=== PATIENT | female | born 1975 | race African-American/Black ===

== ENCOUNTER 2017-02-17 02:00 | Inpatient (IN) | payer MEDICAID ==
[~2017-02-17] VITALS: Ht 160 cm; Wt 104.3 kg
--- NOTE | ~2017-02-17 | PN ---
Unit #: [id number] #: [id number] Patient: ELVIRA QUINONES [id number] [facility] [address] [place] [address] [id number] I MR#: [id number] NAME: ELVIRA QUINONES ROOM: P130 Age: 41 Sex: F Admission Date: 02/17/2017 : 1975 Attending Physician: Anahy Foley M.D. Admitting Physician: Anahy Foley M.D. Primary Care Physician: Primary Care Physician Rosi PEARL NOTES DATE February 19, 2017 DISCUSSION Ms. Quinones is a 41-year-old female, who was seen today and chart was reviewed and the case was discussed with the staff. She has been anxious, withdrawn, and rather seclusive to herself. Meanwhile, she has been exhibiting some persistent psychosis, paranoid, and delusional behavior, and has been taking the medications and tolerating them fairly well with no reported side effects. MENTAL STATUS EXAMINATION Young white female, who was casually dressed with fair personal hygiene and appears to be in no acute distress or discomfort. She was awake and alert on interaction with intact orientation. Her mood was anxious and depressed with a congruent affect. She denies any suicidal or homicidal ideations. Her insight and judgment remain slightly impaired. TREATMENT PLAN 1. We will continue her on her current medications and treatment protocol, and will monitor her response to the medications, and make further adjustments as needed. 2. We will continue to followup. Dictated by... Dawson Robb/sierra TD: 02/19/2017 13:15 JOB #: [id number] Unit #: [id number] #: [id number] Patient: ELVIRA QUINONES NADEGE PROGRESS NOTES Page 1 of 1 X Anahy Foley MD PROGRESS NOTE
--- NOTE | ~2017-02-17 | PN ---
Unit #: [id number] #: [id number] Patient: ELVIRA STEELE [id number] [facility] [address] [place] [address] [id number] I MR#: [id number] NAME: ELVIRA STEELE ROOM: P130 Age: 41 Sex: F Admission Date: 02/17/2017 : 1975 Attending Physician: Anahy Foley M.D. Admitting Physician: Anahy Foley M.D. Primary Care Physician: [facility] Care [facility] NOT[facility] DATE OF SERVICE: 02/18/2017 SUBJECTIVE Ms. Steele is a 41-year-old female, who was seen today and chart was reviewed, and case was discussed with the staff. She has been anxious, withdrawn, depressed, acutely psychotic, paranoid, delusional, and has been carrying on conversation without making any sense and has been talking about looking at people faces and realizing they are not real and that she went [facility] and she was talking different tones and that she realized that she different languages and things are getting bizarre. She felt the devil is communicating with her and was not making much sense and was seen to be acutely psychotic, though she has been taking medications and tolerating them fairly well, but does not appear to be showing therapeutic response to medications. MENTAL STATUS EXAMINATION Middle-aged female, who was casually dressed with fair personal hygiene, appears to be in no acute distress or discomfort. She was awake and alert with impaired attention and concentration. Her mood was anxious with a congruent affect. Her speech was slow and tangential. Her thought processes were disorganized with some looseness of associations and flight of ideas. Her insight and judgment remain significantly impaired. TREATMENT PLAN 1. We will continue her current medications, but we will increase Abilify to 10 mg b.i.d. We will also consider long-acting injectable due to history of poor compliance with medication leading to rapid decompensation. 2. We will continue to follow up. Dictated by... Dawson Robb/maryse TD: 02/18/2017 09:27 JOB #: [id number] Unit #: [id number] #: [id number] Patient: ELVIRA STEELE PROGRESS NOTES Page 1 of 1 X Anahy Foley MD PROGRESS NOTE
--- NOTE | ~2017-02-17 | PN ---
Unit #: [id number] #: [id number] Patient: ELVIRA QUINONES [id number] [facility] [address] [place] [address] [id number] MR#: [id number] NAME: ELVIRA QUINONES ROOM: P130 Age: 41 Sex: F Admission Date: 02/17/2017 : 1975 Attending Physician: Anahy Foley M.D. Admitting Physician: Anahy Foley M.D. Primary Care Physician: Primary Care Physician Rosi PEARL NOTES DATE OF SERVICE 02/20/2017 DISCUSSION Ms. Quinones is a 41-year-old female who was seen today and chart was reviewed and case was discussed with the staff. She has been anxious, withdrawn and seclusive to herself. Meanwhile, she has been cooperative with treatment recommendations as she has been taking the medications and tolerating them fairly well with no reported side effects. MENTAL STATUS EXAMINATION Young female who was casually dressed with fair personal hygiene, appears to be in no acute distress or discomfort. She was awake and alert with impaired attention and concentration. Her mood was anxious with congruent affect. Her speech was slow and tangential. Her thought processes were disorganized with some looseness of associations and paranoid ideations and delusional behavior. Her insight and judgement remains . TREATMENT PLAN 1. We will continue her on her current medications and treatment protocol. We will monitor her response . Dictated by... Dawson Robb/matthew TD: 02/23/2017 03:34 JOB #: [id number] [facility] PROGRESS NOTES Page 1 of 1 X Anahy Foley MD PROGRESS NOTE
--- NOTE | ~2017-02-17 | PN ---
Unit #: [id number] #: [id number] Patient: ELVIRA QUINONES [id number] [facility] [address] [place] [address] [id number] I MR#: [id number] NAME: ELVIRA QUINONES ROOM: P130 Age: 41 Sex: F Admission Date: 02/17/2017 : 1975 Attending Physician: Anahy Foley M.D. Admitting Physician: Anahy Foley M.D. Primary Care Physician: Primary Care Physician Rosi PEARL NOTES DATE OF SERVICE: 02/22/2017 SUBJECTIVE Ms. Quinones is a 41-year-old female with mood disorder and psychosis, who was seen today and chart was reviewed and case was discussed with the staff. She has been anxious, withdrawn, unkempt, disheveled, disorganized, and rather seclusive to herself and has not been able to carry on any meaningful conversation. Meanwhile, she has been taking medications and tolerating them fairly well with no reported side effects. MENTAL STATUS EXAMINATION Young female who was casually dressed with fair personal hygiene, appears to be in no acute distress or discomfort. She was awake and alert with impaired attention and concentration. Her mood was anxious with a congruent affect. Her speech was slow and restricted in content. She denies any suicidal or homicidal ideations. Her insight and judgment remain slightly impaired. TREATMENT PLAN 1. We will continue on her current medications and treatment protocol. We will monitor her response to medications and make further adjustments as needed. 2. We will continue to follow up. Dictated by... Dawson Robb/maryse TD: 02/24/2017 02:41 JOB #: [id number] Unit #: [id number] #: [id number] Patient: ELVIRA QUINONES NADEGE PROGRESS NOTES Page 1 of 1 X Anahy Foley MD PROGRESS NOTE
--- NOTE | ~2017-02-17 | HP ---
Unit #: [id number] #: [id number] Patient: PATTI QUINONES [id number] [place] [address] [id number] I MR#: [id number] NAME: PATTI QUINONES. ROOM: P130 Age: 41 Sex: F Admission Date: 02/17/2017 : 1975 Attending Physician: Anahy Foley M.D. Admitting Physician: Anahy Foley M.D. Primary Care Physician: Primary Care Physician No HISTORY AND PHYSICAL HISTORY OF PRESENT ILLNESS Patti is a 41 year old admitted to [address] [place] [address] with psychotic behavior. She is a poor historian so her history is taken from her chart. She has had numerous admissions to this facility for the same. PAST MEDICAL HISTORY 1. Seizure disorder. 2. High blood pressure. 3. Diabetes mellitus. 4. Morbid obesity. PAST SURGICAL HISTORY x 2. ALLERGIES Latex. SOCIAL HISTORY No history of cigarettes, alcohol or illicit drug use. FAMILY HISTORY Medically not known. REVIEW OF SYSTEMS She does not answer all questions appropriately. There are no reports of nausea, vomiting or diarrhea. She has had no cough or increased temperature. CURRENT MEDICATIONS 1. Zestril 40 mg q day 2. HCTZ 25 mg q day 3. Norvasc 5 mg q day 4. Abilify 15 mg q day 5. Januvia 50 mg b.i.d. 6. Glucophage 500 mg b.i.d. 7. Motrin p.r.n. 8. Milk of Magnesia p.r.n. 9. Maalox p.r.n. 10. Tylenol p.r.n. PHYSICAL EXAMINATION GENERAL: Alert, morbidly obese, in no apparent distress. Unit #: [id number] #: [id number] Patient: PATTI QUINONES VITAL SIGNS: Blood pressure 184/100, heart rate 88, respirations 16, temperature 98.6. WEIGHT: 230. HEIGHT: 5 foot 3 inches. SKIN: Warm and dry without rash or lesion. HEENT: Normocephalic. TMs not viewed. Oral and nasal passages clear. Conjunctivae clear. Pupils equal, round and reactive to light and accommodation. Extraocular movements intact. NECK: Supple without lymphadenopathy or thyromegaly. HEART: Regular rate and rhythm without murmur. LUNGS: Clear. ABDOMEN: Soft, nontender. : Not done. EXTREMITIES: No evidence of cyanosis, clubbing or edema. Moves all extremities without focal deficit. NEUROLOGICAL: Unable to complete extended exam. She does move all extremities without focal deficit. Hand field service consultant is equal and gait is normal. IMPRESSION Psychiatric admission. RECOMMENDATIONS PSYCHIATRIC: Per psychiatrist. MEDICAL: 1. I see no contraindications to participating in facility's activities. 2. Continue Zestril HCTZ, Norvasc, Januvia and Glucophage. MEDICAL PROGNOSIS Good. MEDICAL CONDITION Stable. Dictated by... Ban Moreno P.A.-C. for Dawson Razo/matthew TD: 02/17/2017 20:39 JOB #: [id number] HISTORY AND PHYSICAL Page 1 of 1 X Ban Moreno X HISTORY AND PHYSICAL
--- NOTE | ~2017-02-17 | DS ---
Unit #: [id number] #: [id number] Patient: ELVIRA STEELE [id number] [facility] [address] [place] [address] [id number] I MR#: [id number] NAME: ELVIRA STEELE ROOM: P130 Age: 41 Sex: F Admission Date: 02/17/2017 : 1975 Discharge Date: 02/23/2017 Attending Physician: Anahy Foley M.D. Primary Care Physician: Primary Care Physician No DISCHARGE SUMMARY IDENTIFYING DATA Ms. Steele is a 41-year-old single female, who is a resident of [place], [place], and was self-referred to the hospital on a voluntary basis and is known to us from previous encounter. DISCHARGE DIAGNOSES Psychiatric: Schizoaffective disorder, bipolar type, most recent episode depressed, recurrent, moderate, with psychosis. Medical: Hypertension and diabetes mellitus. Stressors: Moderate psychosocial stressors. HISTORY OF PRESENT ILLNESS Please see initial psychiatric evaluation for details. PAST PSYCHIATRIC HISTORY Please see initial psychiatric evaluation for details. PAST MEDICAL HISTORY Please see initial psychiatric evaluation for details. HOSPITAL COURSE The patient was [facility] and was oriented to the hospital environment. Routine p.r.n. medications were initiated, and she was started back on her home medications including her Abilify; however, given her history of poor compliance with medications leading to rapid decompensation and inpatient hospitalization, we decided that the patient will be a candidate for long-acting injectable antipsychotic and ruling out hypersensitivity to the molecule of aripiprazole. Abilify Maintena as a long-acting injectable was advised. Meanwhile, oral aripiprazole was maintained and the patient was closely monitored. She was taking the medications regularly and was tolerating them fairly well and was able to show a decent and therapeutic response with improvement in depression and psychosis, and as such, it was decided that she will be discharged home and will continue treatment on an outpatient basis. DISCHARGE MEDICATIONS Abilify Maintena 400 mg intramuscular every 30 days. DISCHARGE CONDITION Stable. PROGNOSIS Fair. Unit #: [id number] #: [id number] Patient: ELVIRA STEELE Dictated by... Anahy Foely M.D. IAA/modl TD: 02/23/2017 15:34 JOB #: [id number] DISCHARGE SUMMARY Page 1 of 1 X Anahy Foley MD DISCHARGE SUMMARY
--- NOTE | ~2017-02-17 | PN ---
Unit #: [id number] #: [id number] Patient: ELVIRA QUINONES [id number] [facility] [address] [place] [address] [id number] I MR#: [id number] NAME: ELVIRA QUINONES ROOM: P130 Age: 41 Sex: F Admission Date: 02/17/2017 : 1975 Attending Physician: Anahy Foley M.D. Admitting Physician: Anahy Foley M.D. Primary Care Physician: Primary Care Physician Rosi PEARL NOTES DATE OF SERVICE: 02/21/2017 SUBJECTIVE Ms. Quinones is a 41-year-old female, who was seen today, chart was reviewed, and case was discussed with the staff. She has been anxious, withdrawn, depressed, and rather seclusive to herself. Meanwhile, she has been cooperative with treatment recommendations and has been taking medications and tolerating them fairly well with no reported side effects. MENTAL STATUS EXAMINATION Young female, who was casually dressed with fair personal hygiene, appears to be in no acute distress or discomfort. She was awake and alert with impaired attention and concentration. Her mood was anxious and depressed with a congruent affect. She denies any suicidal or homicidal ideations. Her insight and judgment remain significantly impaired. TREATMENT PLAN 1. We will continue her on current medications and treatment protocol. We will monitor her response to medications and make further adjustments as needed. 2. We will continue to follow up. Dictated by... Dawson Robb/maryse TD: 02/24/2017 02:36 JOB #: [id number] Unit #: [id number] #: [id number] Patient: ELVIRA QUINONES NADEGE PROGRESS NOTES Page 1 of 1 X Anahy Foley MD PROGRESS NOTE
--- NOTE | ~2017-02-17 | PA ---
Unit #: [id number] #: [id number] Patient: EL[facility] STEELE [id number] [facility] [address] [place] [address] [id number] I MR#: [id number] NAME: ELVIRA STEELE ROOM: P130 Age: 41 Sex: F Admission Date: 02/17/2017 : 1975 Date of Assessment: 02/17/2017 Attending Physician: Anahy Foley M.D. Admitting Physician: Anahy Foley M.D. Primary Care Physician: Primary Care Physician No PSYCHIATRIC ASSESSMENT DATE OF SERVICE 02/17/2017. IDENTIFYING DATA Ms. Steele is a 41-year-old single female, who is a resident of [place], [place], and was self-referred to the hospital on a voluntary basis and is known to us from previous encounter with history of chronic mental illness. CHIEF COMPLAINT "I need my medications adjusted." HISTORY OF PRESENT ILLNESS Ms. Steele is a 41-year-old female, who came to the emergency room at [place], [place], and stated that she needs her medication adjusted and that she is hearing voices from a demon that the demon has attempted to wipe away her thoughts and scares her and reports that because of the demon's constant chastising and heckling, she is unable to get any sleep and does report increasing anger, agitation, irritability, impulsivity, and was seen to be acutely psychotic due to disorganized thought, speech, and behavior and was seen to be a danger to self and others and as such, recommendation for inpatient level of care for safety and stabilization was made. The patient was stepped up to the inpatient unit. SUBSTANCE ABUSE HISTORY The patient denies any alcohol or drug abuse. PAST PSYCHIATRIC HISTORY The patient has had history of multiple inpatient [facility] and has been diagnosed and treated for schizoaffective disorder and has been on Abilify, but does not appear to be showing a therapeutic response to medications. PAST MEDICAL HISTORY The patient's medical history is significant for hypertension and diabetes mellitus. ALLERGIES Latex. PERSONAL AND SOCIAL HISTORY A 41-year-old female, who reports that she is single, Unit #: [id number] #: [id number] Patient: ELVIRA STEELE unemployed, and lives alone and has poor social support system. MENTAL STATUS EXAMINATION Young female who was casually dressed with fair personal hygiene, appears to be in no acute distress or discomfort. She was awake and alert on interaction with intact orientation to time, place, and person. Her mood was anxious and depressed with a congruent affect. Her speech was slow and restricted in content. Her thought processes were disorganized with some looseness of associations and flight of ideas and paranoid ideations and auditory and visual hallucinations and delusional behavior. Her insight and judgment remain significantly impaired. DIAGNOSTIC IMPRESSION Psychiatric: Schizoaffective disorder, bipolar type, most recent episode depressed, recurrent, moderate, with psychosis. Medical: Hypertension and diabetes mellitus. Stressors: Moderate psychosocial stressors. TREATMENT PLAN 1. The patient has presented with history of mood disorder, and has been decompensating and will need inpatient hospitalization for safety and stabilization. We will start her back on her home medications. We will adjust the medications and monitor response. 2. Supportive therapy was provided to the patient. 3. Safe, structured, and nourishing environment will be provided. ESTIMATED LENGTH OF STAY 5 to 7 days. ABILITY TO HELP SELF Limited. WILLINGNESS TO HELP SELF The patient appears to be willing to help self. STRENGTHS 1. Communicative. 2. Cooperative. PROBLEMS 1. Chronic dysphoric symptoms. 2. Poor social support system. DISCHARGE CRITERIA This will be contingent upon the patient's ability to show resolution of her depression and psychosis as well as her ability to stay safe to herself, particularly after discharge from the hospital. Dictated by... Dawson Robb/maryse TD: 02/18/2017 07:11 JOB #: [id number] Unit #: [id number] #: [id number] Patient: ELVIRA STEELE PSYCHIATRIC ASSESSMENT Page 1 of 1 X Anahy Foley MD X PSYCHIATRIC ASSESSMENT
[~2017-02-17 02:00] MED LIST: ATENOLOL50 MG PO; BUSPAR15 M3 PO; EFFEXOR75 MG PO; LEVAQUIN750 MG PO; LEVEMIR SUBQ; MAALOX ADVANCE1 EACH PO; MILK OF MAGNESIA PO; NORVASC10 MG PO; RISPERDAL1 M1 PO; TYLENOL325 M1 PO; ZESTRIL40 MG PO
[2017-02-19 13:00] LABS: AMPHETAMINE NEG (NEG); BARBITURATES NEG (NEG); BENZODIAZEPINES NEG (NEG); COCAINE NEG (NEG); MARIJUANA NEG (NEG); OPIATES NEG (NEG); TRICYCLIC ANTIDEPRESSANTS NEG (NEG); U METHADONE NEG (NEG)
== END 2017-02-23 10:38 | disposition home or self-care (01) | DRG 885 ==
LOC: P1S 06:09
PROVIDERS: Psychiatry & Neurology Psychiatry
DX: F25.0 Schizoaffective disorder, bipolar type (principal); E11.9 Type 2 diabetes mellitus without complications; I10 Essential (primary) hypertension; Z91.040 Latex allergy status
CPT/HCPCS: 80307; 84703